=== PATIENT | male | born 1940 ===

== ENCOUNTER 2021-01-22 08:27 | Emergency (ER) | payer MEDICARE ==
[~2021-01-22 08:27] MED LIST: Albuterol/Ipratropium 3.0-0.5 MG/3 ML Neb Soln NEB SCH
--- NOTE | 2021-01-22 09:22 | CR ---
DATE OF SERVICE: 01/22/2021 CLINICAL DATA: SHORTNESS OF BREATH PA and lateral chest: Comparison is made to a prior exam dated 06 November 2019. The patient has taken a poor inspiration. The heart size is normal. The aorta is ectatic. There is poorly defined infiltrate with consolidation in the right lower lobe. This is consistent appearance with pneumonia. The left lung is clear. No pneumothorax. No pleural effusions. MTDD
[2021-01-22 09:33] VITALS: BP 143/81; PULSE 109
--- NOTE | 2021-01-22 10:03 | EDM.PDOC ---
<Nikki Zavala - Last Filed: 01/22/21 10:02> ED HPI GENERAL MEDICAL PROBLEM - General Chief Complaint: Respiratory Problem Stated Complaint: SOB Time Seen by Provider: 01/22/21 09:25 Right Pain Score (Numeric/FACES): 3 - Related Data Allergies Allergy/AdvReac Type Severity Reaction Status Date / Time No Known Allergies Allergy Verified 01/22/21 09:25 Home Meds: Home Meds Azithromycin [Zithromax] 250 mg PO DAILY #6 tablet 01/22/21 [Rx] Departure - Departure Disposition: Home, Self-Care 01 Clinical Impression: Community acquired pneumonia - Discharge Information Prescriptions: Azithromycin [Zithromax] 250 mg PO DAILY #6 tablet Instructions: Community-Acquired Pneumonia, Adult, [id number], Community- Acquired Pneumonia, Adult Referrals: PCP,None [Primary Care Provider] - Forms: ED Department Discharge Additional Instructions: - take antibiotics as prescribed ( 2 tabs on day1, then 1 tab daily till complete ). - continue with the inhalers at home - follow up with your PCP this Wednesday at 2 pm - return to the ER if any concerns or worsening of symptoms Sepsis Event Note (ED) - Evaluation Sepsis Screening Result: Possible Sepsis Risk <ArronWarren S - Last Filed: 01/22/21 10:53> ED HPI GENERAL MEDICAL PROBLEM - General Source of Information: Reports: Patient History Limitations: Reports: No Limitations - History of Present Illness INITIAL COMMENTS - FREE TEXT/NARRATIVE: 80-year-old male presents to the ED complaining of cough and shortness of breath with a fever. Patient originally attributed his symptoms due to a flu vaccine that he took on Wednesday. Patient started having symptoms on Wednesday that gradually came on getting worse on Wednesday. Positive for minor chest pain, increased shortness of breath, cough, sputum production/bland, chills, Decreased oral intake, increased pedal edema for the past couple years chronic. Negative for: Change in urine color or smell or frequency, bowel movements constipation/diarrhea dark stools, bloody stools. 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 ED EXAM, GENERAL - Physical Exam Exam: See Below Free Text/Narrative:: 80-year-old male found sitting on the stretcher in bay 2 in the ED. Patient is alert and oriented 3/3 GCS 4 5 6. Skin warm dry no pallor. No apparent distress. Speaking in full sentences. Exam Limited By: No Limitations General Appearance: Alert, WD/WN, No Apparent Distress Eye Exam: Bilateral Eye: EOMI, PERRL Ears: Hearing Grossly Normal Nose: Normal Inspection, Normal Mucosa. No: No Blood, Nasal Drainage, Clear Rhinorrhea Throat/Mouth: Normal Lips, Normal Teeth, Normal Voice, No Airway Compromise Head: Atraumatic, Normocephalic Respiratory/Chest: No Respiratory Distress, No Accessory Muscle Use, Chest Non- Tender, Rales (Right lower lobe), Rhonchi (Right lower lobe) Cardiovascular: Normal Peripheral Pulses, Regular Rate, Rhythm, No Edema, No Gallop, No JVD, No Murmur, No Rub Peripheral Pulses: 2+: Radial (L), Radial (R) GI/Abdominal: Soft, No Mass, Tender (Right upper quadrant) Back Exam: No: CVA Tenderness (R), CVA Tenderness (L) Extremities: Normal Inspection, Normal Range of Motion, Non-Tender, Normal Capillary Refill, No Pedal Edema Neurological: Alert, Oriented, Normal Cognition, Normal Gait Psychiatric: Normal Affect, Normal Mood Skin Exam: Warm, Dry, Intact, Normal Color, No Rash Lymphatic: No Adenopathy #1 Interpretation EKG Date: 01/22/21 (Normal sinus rhythm with a right bundle branch block, EKG isnotable for a increased widening of his right bundle branch block. Previous EKG and current were discussed with primary care provider in person with Dr. Grimm, we both agree that is most likely due to the patient's pneumonia.) Course - Vital Signs Last Recorded V/S: Last Vital Signs Temp 98 F 01/22/21 09:31 Pulse 109 H 01/22/21 09:31 Resp 18 01/22/21 09:31 BP 143/81 H 01/22/21 09:31 Pulse Ox 91 L 01/22/21 09:31 - Orders/Labs/Meds Labs: Laboratory Tests 01/22/21 01/22/21 Range/Units 08:46 08:46 WBC 19.9 H D (4.0-11.0) K/uL RBC 4.81 (4.50-6.50) M/uL Hgb 14.5 (13.0-18.0) g/dL Hct 43.3 (40.0-54.0) % MCV 90 (76-96) fL MCH 30.1 (27.0-32.0) pg MCHC 33.5 (31.0-35.0) g/dL RDW 14.5 (11.0-16.0) % Plt Count 254 (150-400) K/uL MPV 11.1 H (6.0-10.0) fL Neut % (Auto) 88.4 H (45.0-70.0) % Lymph % (Auto) 6.8 L (20.0-40.0) % [place] % (Auto) 4.5 (3.0-10.0) % Eos % (Auto) 0.2 L (1.0-5.0) % Baso % (Auto) 0.1 (0.0-0.5) % Neut # (Auto) 17.58 H (2.00-7.50) K/uL Lymph # (Auto) 1.36 L (1.50-4.00) K/uL [place] # (Auto) 0.89 H (0.20-0.80) K/uL Eos # (Auto) 0.03 L (0.04-0.40) K/uL Baso # (Auto) 0.01 L (0.02-0.10) K/uL Sodium 134 L (136-145) mmol/L Potassium 3.3 L (3.5-5.1) mmol/L Chloride 97 L (98-107) mmol/L Carbon Dioxide 25.0 (21.0-32.0) mmol/L Anion Gap 15.3 H (5.0-15.0) mmol/L BUN 23 D (8-26) mg/dL Creatinine 1.24 D (0.70-1.30) mg/dL Est Cr Clr Drug Dosing 50.69 mL/min Estimated GFR (MDRD) 56 L (>60) MLS/MIN BUN/Creatinine Ratio 18.5 (6-25) Glucose 122 H (74-100) mg/dL Calcium 9.5 (8.5-10.1) mg/dL Troponin I < 0.017 (0.000-0.060) ng/mL Meds: Medications Discontinued Medications Generic Name Dose Route Start Last Admin Trade Name Freq PRN Reason Stop Dose Admin Albuterol/Ipratropium 3 ml 01/22/21 08:00 01/22/21 10:09 Albuterol/Ipratropium 3.0-0.5 Mg/3 Ml Neb Soln NEB 3 ml Q6H BRYANT Administration Departure - Departure Time of Disposition: 10:10 Condition: Good - Discharge Information *PRESCRIPTION DRUG MONITORING PROGRAM REVIEWED*: No *COPY OF PRESCRIPTION DRUG MONITORING REPORT IN PATIENT WANDA: No Sepsis Event Note (ED) - Focused Exam Vital Signs: Vital Signs Temp Temp Pulse Resp BP Pulse Ox 01/22/21 09:31 98 F 109 H 18 143/81 H 91 L 01/22/21 09:00 98.3 F 103 H 18 142/77 H 92 L - Assessment/Plan Assessment:: 80-year-old male that presented to the ED for evaluation of shortness of breath cough and fevers. History physical and imaging studies are consistent with pneumonia. There are no significant complications or normal pneumonia at this point such as septic shock, bacteremia, empyema, hypoxia, respiratory failure or compromise. Supportive outpatient management is therefore indicated, and I will treat the patient with azithromycin (Z-Nolan). I would not not hospitalize the patient at this point for further care or IV antibiotics. This seems to be a community-acquired pneumonia and there is no risk factors at this point for coverage of antibiotic resistant strains. Patient will follow up with primary care provider regardless of the D disease course within 2 days (Wednesday). Signs for return to ED were discussed with the patient and pneumonia precautions given for home. History, exam, chest x-ray, laboratory tests to include CBC, BMP, troponin, DuoNeb, patient discharged with a prescription for azithromycin (Z-Nolan), all questions for the patient were answered to their satisfaction, patient understood the care plan and follow-up requirements and agreed to both. Patient was discharged in stable condition
== END 2021-01-22 10:11 | disposition home or self-care (01) ==
LOC: LB.ED 08:27
DX: J18.9 Pneumonia, unspecified organism (principal)
CPT/HCPCS: 36415; 71046; 80048; 84484; 85025; 93005; 99285-25; J7620-GY